=== PATIENT | female | born 1985 | race Caucasian/White ===

== ENCOUNTER 2021-01-14 08:28 | Outpatient (CLI) | payer BC, SELFPAY ==
--- NOTE | 2021-01-14 08:39 | US_ITS ---
WS: [id number] EARLY OBSTETRICAL ULTRASOUND (<14 WEEKS). HISTORY: DATING COMPARISON: None available. Intrauterine fluid collection is probably an early gestational sac. This gestational sac is along the lower end of the endometrium. Mean sac diameter of 1.6 cm corresponds to gestation of 6 weeks and 5 days. There is a yolk sac present and a tiny soft tissue focus which may be early crown-rump length. No cardiac activity is identified. There is a very small adjacent subchorionic hemorrhage measuring 6 x 5 mm. The cervix is closed. No free fluid in the cul-de-sac. Both ovaries are identified with normal vascularity. US/US OB <=14 wk fetus w transvag IMPRESSION: 1. Mean sac diameter corresponds to an age of 6 weeks and 5 days. 2. No cardiac activity identified. Suspect early crown-rump length of 3.9 mm. 3. Small subchorionic hemorrhage. 4. Gestational sac is positioned along the lower endometrial canal. Recommend follow-up ultrasound in one week to confirm viable .
== END 2021-01-14 08:29 | disposition home or self-care (01) ==
LOC: US 08:32
PROVIDERS: PCP Family Medicine; Visit Provider Family Medicine
DX: Z34.80 Encounter for supervision of other normal pregnancy, unspecified trimester (principal)
CPT/HCPCS: 76801; 76817

== ENCOUNTER 2021-01-21 09:01 | Outpatient (CLI) | payer BC, SELFPAY ==
--- NOTE | 2021-01-21 09:12 | US_ITS ---
WS: [id number] ULTRASOUND EARLY TECHNIQUE: Transabdominal sonography of the pelvis was performed. Followed by transvaginal sonography to better evaluate the uterus and ovaries. CLINICAL INFORMATION: ABSENT FHT'S ON US LMP: 11/14/2020 Beta hCG: Unknown. COMPARISON: January 14, 2021 FINDINGS: UTERUS AND GESTATIONAL SAC Intrauterine gestations: Cervix is closed measuring 3.0 cm No visualized pole or cardiac activity. Estimated gestational age: 6w6d Estimated date of delivery September 10, 2021 Yolk sac: 0.3 cm. Subchorionic hemorrhage: No new subchorionic hemorrhage. A small amount of residual subchorionic hemo rrhage described on January 14, 2021 OVARIES Right ovary: Normal. Left ovary: Left ovary not visualized. FREE FLUID Present US[place] [id number] IMPRESSION: 1. No pole or cardiac activity visualized. 2. Gestational sac size compatible with 6 weeks 6 days with a small amount of residual subchorionic hemorrhage. No new subchorionic hemorrhage. 3. Visualized yolk sac with no visualized pole. 4. Recommend additional short interval follow-up to assess viability in this v trever early and correlation with beta-hCG. 5. Small amount of free fluid in the cul-de-sac.
== END 2021-01-21 09:02 | disposition home or self-care (01) ==
LOC: RAD 09:04
PROVIDERS: PCP Family Medicine; Visit Provider Family Medicine
DX: O36.8990 Maternal care for other specified fetal problems, unspecified trimester, not applicable or unspecified (principal)
CPT/HCPCS: 76816

== ENCOUNTER → 2021-10-28 08:52 | Outpatient (BNVA) | payer BC, SELFPAY | PROVIDERS: PCP Family Medicine; Visit Provider Clinical Nurse Specialist Adult Health | DX: N92.0 Excessive and frequent menstruation with regular cycle (principal); R53.83 Other fatigue | CPT/HCPCS: 82306; 84439; 84443; 84481; 85025 ==

== ENCOUNTER → 2022-04-19 13:59 | Outpatient (BNVA) | payer BC, SELFPAY | PROVIDERS: PCP Family Medicine; Visit Provider Podiatrist Foot & Ankle Surgery | DX: M76.61 Achilles tendinitis, right leg (principal); M76.62 Achilles tendinitis, left leg; M20.21 Hallux rigidus, right foot | CPT/HCPCS: 73630 ==

== ENCOUNTER → 2022-12-22 08:07 | Outpatient (BNVA) | payer BC, SELFPAY | PROVIDERS: PCP Family Medicine; Visit Provider Clinical Nurse Specialist Adult Health | DX: Z30.9 Encounter for contraceptive management, unspecified (principal); Z83.49 Family history of other endocrine, nutritional and metabolic diseases | CPT/HCPCS: 80061; 84443 ==

== ENCOUNTER 2023-02-24 15:52 | Emergency (ER) | payer BC, SELFPAY ==
--- NOTE | 2023-02-24 15:53 | XRR_ITS ---
PROCEDURE INFORMATION: Exam: XR Chest Exam date and time: 02/24/2023 3:59 PM Age: 37 years old Clinical indication: Pain; Angina pectoris; Additional info: Cp TECHNIQUE: Imaging protocol: Radiologic exam of the chest. Views: 1 view. COMPARISON: No relevant prior studies available. FINDINGS: Lungs: Unremarkable. No consolidation. Pleural spaces: Unremarkable. No pleural effusion. No pneumothorax. Heart/Mediastinum: Unremarkable. No cardiomegaly. Bones/joints: Unremarkable. XR/XR chest 1V portable [id number] IMPRESSION: No acute findings.
--- NOTE | 2023-02-24 16:04 | ECG_ITS ---
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 Measurements Intervals [place] Rate: 79 P: 51 DC: 154 QRS: 29 QRSD: 97 T: 20 QT: 362 QTc: 415 Interpretive Statements SINUS RHYTHM WITH SINUS ARRHYTHMIA No previous ECG available for comparison Electronically Signed On 02-24-2023 19:26:04 CDT by Leonel Ga M.D. [id number]
[2023-02-24 16:05] VITALS: BP 162/108; PULSE 87; TEMP 36.6; O2SAT 98; BMI 40.0
[2023-02-24 16:55] LABS: Basophils % 0.4 %; Eosinophils # 0.1 10^3/uL (0.0-0.8); Eosinophils % 0.7 %; Hematocrit 43.1 % (36-47); Lymphocytes # 2.3 10^3/uL (0.8-4.8); Mean Corpuscular HGB Conc 33.4 g/dL (30-55); Mean Corpuscular Hemoglobin 29.9 pg (27-33); Mean Corpuscular Volume 89.6 fl (85-98); Mean Platelet Volume 9.5 fL (7.4-10.4); Monocytes # 0.6 10^3/uL (0.2-0.9); Monocytes % 5.4 %; Neutrophils % 73.1 %; Nucleated Red Blood Cells % 0 %; Platelet Count 385 10^3/cmm (157-399); Red Blood Count 4.81 10^6/uL (3.85-5.65); Red Cell Distribution Width 13.3 % (12.1-15.1); White Blood Count 11.35 10^3/uL (3.29-11.43)
[2023-02-24 17:11] LABS: HCG, Serum Qual Negative (Negative)
[2023-02-24 17:12] LABS: INR 0.94 (0.8-1.2)
[2023-02-24 17:18] LABS: Troponin(5th) Baseline 6 ng/L (0-10)
[2023-02-24 17:19] LABS: Alanine Aminotransferase 22 U/L (0-33); Albumin Level 4.4 g/dL (3.5-5.2); Alkaline Phosphatase 83 U/L (35-105); Anion Gap 15.2 (5-19); Aspartate Amino Transferase 18 U/L (0-32); Blood Urea Nitrogen 8 mg/dL (6-20); Calcium 9.3 mg/dL (8.5-10.5); Carbon Dioxide 28 mmol/L (22-29); Chloride 104 mmol/L (98-107); Globulin 2.9 g/dL (1.3-4.6); Glomerular Filtration Rate 112.5 mL/min (90-130); Glucose 93 mg/dL (65-115); Osmolality Calculated 294 mOsm/kg (285-295); Potassium 4.2 mmol/L (3.5-5.1); Sodium 143 mmol/L (136-145); Total Bilirubin 0.2 mg/dL (0.15-1.2); Total Protein 7.3 g/dL (6.6-8.7)
--- NOTE | 2023-02-24 18:05 | ECG_ITS ---
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 Measurements Intervals [place] Rate: 75 P: 21 SD: 160 QRS: 37 QRSD: 90 T: 50 QT: 359 QTc: 402 Interpretive Statements SINUS RHYTHM MINIMAL ST DEPRESSION [0.025+ mV ST DEPRESSION] Compared to ECG 02/24/2023 16:04:48 ST (T wave) deviation now present Sinus arrhythmia no longer present Electronically Signed On 02-24-2023 19:30:56 CDT by Leonel Ga M.D. [id number]
--- NOTE | 2023-02-24 18:38 | CTR_ITS ---
PROCEDURE INFORMATION: Exam: CT Head Without Contrast Exam date and time: 02/24/2023 6:50 PM Age: 37 years old Clinical indication: Pain; Headache TECHNIQUE: Imaging protocol: Computed tomography of the head without contrast. Axial, coronal and sagittal reformatted images were created and reviewed. Radiation optimization: All CT scans at this facility use at least one of these dose optimization techniques: automated exposure control; mA and/or kV adjustment per patient size (includes targeted exams where dose is matched to clinical indication); or iterative reconstruction. REPORTING DATA: Count of CT and Cardiac NM exams in prior 12 months: This patient has received 0 known CTs and 0 known cardiac nuclear medicine studies in the 12 months prior to the current study. COMPARISON: No relevant prior studies available. RADIATION DOSE METRICS: Total DLP (mGy-cm): 1025 FINDINGS: Brain: No CT evidence of acute intracranial hemorrhage or acute territorial infarction. No significant mass effect or midline shift. Basal cisterns patent. Cerebral ventricles: Normal in size and configuration. Paranasal sinuses: Unremarkable. No fluid levels. Mastoid air cells: Grossly unremarkable. Bones/joints: No acute osseous abnormality. Soft tissues: Grossly unremarkable. CT/CT head wo con* [id number] IMPRESSION: No CT evidence of acute intracranial pathology.
[2023-02-24] MEDS: metoclopramide 5 mg/mL SDV 2 mL 10 MG IVP (19:59)
[2023-02-24] MEDS: ketorolac 30 mg/mL INJ IVP (19:59)
[2023-02-24] MEDS: diphenhydrAMINE 50 mg/mL SDV 1mL IVP (19:59)
[2023-02-24] MEDS: sodium chloride 0.9% 1,000 ML 999 ML IV (19:59)
[2023-02-24 20:47] LABS: Troponin 5 2HR Delta 0 ABS# (0-10)
[2023-02-24 20:48] VITALS: BP 163/94; PULSE 68; O2SAT 97
--- NOTE | 2023-02-24 21:46 | ED_ITS ---
Documented by User: KRISTINA Jain 02/24/23 22:39 HPI - Headache General: Chief Complaint: Headache Stated Complaint: Cp, headache Time Seen by Provider: 02/24/23 18:20 History of Present Illness: Patient reports that she has had the worst headache of her life since Tuesday. She reports some nausea with this but she states the headache is intense and her blood pressure has been elevated. She denies any visual disturbance. She reports having a history of migraines in which she always has visual disturbance. She states that this headache is very different from her migraine headaches. She rates it an 8 out of 10 on a 0-to-10 scale. She reports that she is recovering from COVID. She did take Paxil bed she has been off of that medication since 18 February. She reports that she has been feeling generally well except for continued fatigue. She states that the headache did not start until Tuesday. She offers that she is very hydrated. She denies possibility of . She does report that she has had intermittent chest pain/ tightness but does not currently have this. She denies any associated shortness of breath. Associated symptoms: Reports chest pain (Intermittent not having pain at present); Deny confusion, fever(s), lightheadedness, nausea, syncope or vomiting Review of Systems Const: Denies: fever(s), chills or body aches Eyes: Denies: change in vision or blurry vision ENMT: Denies: throat pain Card: Reports: chest pain (Intermittent not having pain at present); Denies: palpitations, irregular heart rhythm, lightheadedness or syncope Resp: Denies: dyspnea, productive cough or non-productive cough GI: Denies: abdominal pain, nausea or vomiting : Denies: flank pain, difficulty voiding, dysuria, urinary frequency, urinary urgency or urinary hesitancy Musc: Denies: neck pain or back pain Neuro: Reports: headache(s); Denies: numbness in extremities, weakness in extremities, sensory changes, lack of coordination, difficulty walking, confusion or behavioral changes PFSH ED PFSH: Medical History Butterfly rash EVE negative Esophageal spasm Hyperlipidemia Myopia Surgical History Retinal detachment surgery for this Family History Sister Lili's thyroiditis ADHD Other CAD (coronary artery disease) Hyperlipidemia Hypertension ALONDRA (obstructive sleep apnea) Social History Smoking and tobacco status: never smoked Alcohol intake: current Alcohol intake frequency: holidays/special occasions only Substance/Drug Use: never Physical Exam Const: COMMON NORMALS: no acute distress, patient oriented x3 and alert GENERAL APPEARANCE: cooperative ORIENTATION/CONSCIOUSNESS: Yes awake, Yes oriented to person, Yes oriented to place and Yes oriented to time Eye: COMMON NORMALS: Equal, round and reactive pupils present, EOMs intact bilaterally and conjunctivae normal GENERAL EYE: appearance normal, both eyes and all related structures ALIGNMENT: Yes alignment normal CONJUNCTIVA: Yes conjunctivae normal SCLERA: sclerae normal PUPIL: Yes Equal, round and reactive pupils present Neck/C-Spine: COMMON NORMALS: full ROM Resp: COMMON NORMALS: normal respiratory effort, No retractions, No use of accessory muscles and clear to auscultation bilaterally EFFORT & INSPECTION: Yes symmetric chest movement AUSCULTATION: clear to auscultation bilaterally Cardio: COMMON NORMALS: regular rate, regular rhythm, S1 normal heart sound present and S2 normal heart sound present RATE: regular rate RHYTHM: regular rhythm HEART SOUNDS: S1 normal heart sound present and S2 normal heart sound present GI: COMMON NORMALS: Normal to inspection, nondistended, normoactive bowel sounds present, Soft to palpation, non-tender, No hepatosplenomegaly present, no masses and no bruits INSPECTION: Yes normal to inspection PALPATION: Yes Soft to palpation and Yes No hepatosplenomegaly present : COMMON NORMALS: Yes no CVA tenderness BLADDER/KIDNEY EXAM: Yes no CVA tenderness Back/Pelvis: COMMON NORMALS: no CVA tenderness Neuro: COMMON NORMALS: patient oriented x3 SENSORIUM/ORIENTATION: Yes alert, Yes oriented to person, Yes oriented to place and Yes oriented to time Psych: COMMON NORMALS: cooperative Course Vital Signs: Vital signs: Vital Signs Temperature 97.9 F 02/24/23 16:05 Pulse Rate 78 02/24/23 22:26 Respiratory Rate 18 02/24/23 22:26 Blood Pressure 154/87 02/24/23 22:26 Pulse Oximetry 97 09/14/23 22:26 Oxygen Delivery Me thod Room Air 02/24/23 16:05 MDM - Headache Medical Decision Making Consider chest pain, ACS, intracranial hemorrhage, headache, migraine, dehydration, elevated blood pressure, anxiety Labs do not indicate any major infection. They are essentially unremarkable. Troponins baseline and 2-hour repeat are negative. Patient has not had any instance of chest pain while in the ER. CT head negative for any acute intracranial pathology Patient is given IV fluids with migraine cocktail Benadryl, Reglan, Toradol. She reports resolution of headache and feeling much better. Will discharge patient to home to follow-up with primary care provider next week. Advised her of red flags for worsening or new headache symptoms. Return to the ER as needed for any new or worsening symptoms. Patient and spouse are both agreeable with plan of care and wished to be discharged home at this time. Patient is discharged home in stable condition. Lab Data 02/24/23 16:39 02/24/23 16:39 Radiology Impressions Chest X-Ray 02/24/23 15:53 IMPRESSION: No acute findings. Head CT 02/24/23 18:38 IMPRESSION: No CT evidence of acute intracranial pathology. Laboratory Results WBC 11.35 10^3/uL (3.29-11.43) 02/24/23 16:39 RBC 4.81 10^6/uL (3.85-5.65) 02/24/23 16:39 Hgb 14.40 g/dL (11.27-16.99) 02/24/23 16:39 Hct 43.1 % (36-47) 02/24/23 16:39 MCV 89.6 fl (85-98) 02/24/23 16:39 MCH 29.9 pg (27-33) 02/24/23 16:39 MCHC 33.4 g/dL (30-55) 02/24/23 16:39 RDW 13.3 % (12.1-15.1) 02/24/23 16:39 Plt Count 385 10^3/cmm (157-399) 02/24/23 16:39 MPV 9.5 fL (7.4-10.4) 02/24/23 16:39 Neut % (Auto) 73.1 % 02/24/23 16:39 Lymph % (Auto) 20.0 % 02/24/23 16:39 [place] % (Auto) 5.4 % 02/24/23 16:39 Eos % (Auto) 0.7 % 02/24/23 16:39 Baso % (Auto) 0.4 % 02/24/23 16:39 Neut # (Auto) 8.30 10^3/uL (1.8-7.7) H 02/24/23 16:39 Lymph # (Auto) 2.3 10^3/uL (0.8-4.8) 02/24/23 16:39 [place] # (Auto) 0.6 10^3/uL (0.2-0.9) 02/24/23 16:39 Eos # (Auto) 0.1 10^3/uL (0.0-0.8) 02/24/23 16:39 Baso # (Auto) 0.0 10^3/uL (0.0-0.1) 02/24/23 16:39 Nucleated RBC % (auto) 0 % 02/24/23 16:39 Nucleated RBCs # 0.0 /100WBC 02/24/23 16:39 PT 12.90 SECONDS (12.1-14.9) 02/24/23 16:39 INR 0.94 (0.8-1.2) 02/24/23 16:39 Sodium 143 mmol/L (136-145) 02/24/23 16:39 Potassium 4.2 mmol/L (3.5-5.1) 02/24/23 16:39 Chloride 104 mmol/L (98-107) 02/24/23 16:39 Carbon Dioxide 28 mmol/L (22-29) 02/24/23 16:39 Anion Gap 15.2 (5-19) 02/24/23 16:39 BUN 8 mg/dL (6-20) 02/24/23 16:39 Creatinine 0.6 mg/dL (0.5-0.9) 02/24/23 16:39 GFR Calculation 112.5 mL/min (90-130) 02/24/23 16:39 Glucose 93 mg/dL (65-115) 02/24/23 16:39 Calculated Osmolality 294 mOsm/kg (285-295) 02/24/23 16:39 Calcium 9.3 mg/dL (8.5-10.5) 02/24/23 16:39 Total Bilirubin 0.2 mg/dL (0.15-1.2) 02/24/23 16:39 AST 18 U/L (0-32) 02/24/23 16:39 ALT 22 U/L (0-33) 02/24/23 16:39 Alkaline Phosphatase 83 U/L (35-105) 02/24/23 16:39 Troponin T Baseline 6 ng/L (0-10) 02/24/23 16:39 Troponin T 120 Minute 6.0 ng/L (0-10) 02/24/23 19:52 Delta Troponin T 0 ABS# (0-10) 02/24/23 19:52 Total Protein 7.3 g/dL (6.6-8.7) 02/24/23 16:39 Albumin 4.4 g/dL (3.5-5.2) 02/24/23 16:39 Globulin 2.9 g/dL (1.3-4.6) 02/24/23 16:39 HCG, Qual Negative (Negative) 02/24/23 16:39 All radiology interpretation(s) finalized by discharge Discharge Plan Discharge Patient Disposition: Home Clinical Impression: Headache, Chest pain, Elevated blood pressure reading Condition: Stable Prescriptions: No Action cetirizine [Zyrtec] 10 mg tablet 10 mg PO DAILY PRN Women's Multivitamin 18 mg-400 mcg- 500 mg-50 mcg tablet PO fluticasone propionate 50 mcg/actuation spray,suspension 2 spray intranasal DAILY Rx Instructions: administer into each nostril cholecalciferol (vitamin D3) 25 mcg (1,000 unit) capsule 25 mcg PO DAILY cyanocobalamin (vitamin B-12) [Vitamin B-12] 500 mcg tablet 500 mcg PO DAILY losartan 25 mg tablet 25 mg PO DAILY Qty: 30 3RF valacyclovir 1 gram tablet See Rx Instructions .ROUTE .COMPLEX Qty: 30 6RF Dose Instruction: TAKE 2 TABLETS BY MOUTH TWICE DAILY FOR 1 DAY WITH OUTBREAKS AND 1 TABLET FOR SUPPRESSION Rx Instructions: TAKE 2 TABLETS BY MOUTH TWICE DAILY FOR 1 DAY WITH OUTBREAKS AND 1 TABLET daily FOR SUPPRESSION sumatriptan succinate 50 mg tablet 50 mg PO Q2H PRN (Reason: migraine headache) Qty: 14 3RF Rx Instructions: Do not exceed two tabs in 24 hrs. norethindrone ac-eth estradiol 1-20 mg-mcg tablet 1 tab PO DAILY Qty: 63 4RF Discharge Orders: Discharge ED (Routine); Ordered 02/24/23 Ordered By: Radha Chavez Referrals: Zaire Gallagher MD [Primary Care Provider] - Discharge Diet: Usual diet Discharge Activity: Resume usual activity Patient Instructions: Acute Headache (ED) Activity Restrictions/Additional Instructions: Your labs and your CT scan today did not indicate any acute infection/abnormality. Your headache resolved with the administration of the IV fluids and medications. You did not have any incidence of chest pain while in the ER and your troponin levels did not indicate any abnormalities. Follow-up with your primary care provider next week. Return to the ER for any new, worsening symptoms. Coding Level of Care Code ED Cleaner Furniture for Chg Fwd Documented by User: Jonathan Collier DO 03/04/23 05:54 HPI - Headache General: Chief Complaint: Headache Stated Complaint: Cp, headache Time Seen by Provider: [facility]24[facility]23 18:[facility]: Medical History Butterfly rash EVE negative Esophageal spasm Hyperlipidemia Myopia Surgical History Retinal detachment surgery for this Family History Sister Lili's thyroiditis ADHD Other CAD (coronary artery disease) Hyperlipidemia Hypertension ALONDRA (obstructive sleep apnea) Social History Smoking and tobacco status: never smoked Alcohol intake: current Alcohol intake frequency: holidays/special occasions only Substance/Drug Use: never Course Vital Signs: Vital signs: Vital Signs Temperature 97.9 F 02/24/23 16:05 Pulse Rate 78 02/24/23 22:26 Respiratory Rate 18 02/24/23 22:26 Blood Pressure 154/87 02/24/23 22:26 Pulse Oximetry 97 02/24/23 22:26 Oxygen Delivery Me thod Room Air 02/24/23 16:05 MDM - Headache Medical Decision Making Consider chest pain, ACS, intracranial hemorrhage, headache, migraine, dehydration, elevated blood pressure, anxiety Labs do not indicate any major infection. They are essentially unremarkable. Troponins baseline and 2-hour repeat are negative. Patient has not had any instance of chest pain while in the ER. CT head negative for any acute intracranial pathology Patient is given IV fluids with migraine cocktail Benadryl, Reglan, Toradol. She reports resolution of headache and feeling much better. Will discharge patient to home to follow-up with primary care provider next week. Advised her of red flags for worsening or new headache symptoms. Return to the ER as needed for any new or worsening symptoms. Patient and spouse are both agreeable with plan of care and wished to be discharged home at this time. Patient is discharged home in stable condition. Chart reviewed and patient discussed with midlevel. Agree with assessment and plan. Medical Records I reviewed the patient's medical records. Lab Data I reviewed the patient's lab results. 02/24/23 16:39 02/24/23 16:39 Radiology Impressions Chest X-Ray 02/24/23 15:53 IMPRESSION: No acute findings. Head CT 02/24/23 18:38 IMPRESSION: No CT evidence of acute intracranial pathology. Laboratory Results WBC 11.35 10^3/uL (3.29-11.43) 02/24/23 16:39 RBC 4.81 10^6/uL (3.85-5.65) 02/24/23 16:39 Hgb 14.40 g/dL (11.27-16.99) 02/24/23 16:39 Hct 43.1 % (36-47) 02/24/23 16:39 MCV 89.6 fl (85-98) 02/24/23 16:39 MCH 29.9 pg (27-33) 02/24/23 16:39 MCHC 33.4 g/dL (30-55) 02/24/23 16:39 RDW 13.3 % (12.1-15.1) 02/24/23 16:39 Plt Count 385 10^3/cmm (157-399) 02/24/23 16:39 MPV 9.5 fL (7.4-10.4) 02/24/23 16:39 Neut % (Auto) 73.1 % 02/24/23 16:39 Lymph % (Auto) 20.0 % 02/24/23 16:39 [place] % (Auto) 5.4 % 02/24/23 16:39 Eos % (Auto) 0.7 % 02/24/23 16:39 Baso % (Auto) 0.4 % 02/24/23 16:39 Neut # (Auto) 8.30 10^3/uL (1.8-7.7) H 02/24/23 16:39 Lymph # (Auto) 2.3 10^3/uL (0.8-4.8) 02/24/23 16:39 [place] # (Auto) 0.6 10^3/uL (0.2-0.9) 02/24/23 16:39 Eos # (Auto) 0.1 10^3/uL (0.0-0.8) 02/24/23 16:39 Baso # (Auto) 0.0 10^3/uL (0.0-0.1) 02/24/23 16:39 Nucleated RBC % (auto) 0 % 02/24/23 16:39 Nucleated RBCs # 0.0 /100WBC 02/24/23 16:39 PT 12.90 SECONDS (12.1-14.9) 02/24/23 16:39 INR 0.94 (0.8-1.2) 02/24/23 16:39 Sodium 143 mmol/L (136-145) 02/24/23 16:39 Potassium 4.2 mmol/L (3.5-5.1) 02/24/23 16:39 Chloride 104 mmol/L (98-107) 02/24/23 16:39 Carbon Dioxide 28 mmol/L (22-29) 02/24/23 16:39 Anion Gap 15.2 (5-19) 02/24/23 16:39 BUN 8 mg/dL (6-20) 02/24/23 16:39 Creatinine 0.6 mg/dL (0.5-0.9) 02/24/23 16:39 GFR Calculation 112.5 mL/min (90-130) 02/24/23 16:39 Glucose 93 mg/dL (65-115) 02/24/23 16:39 Calculated Osmolality 294 mOsm/kg (285-295) 02/24/23 16:39 Calcium 9.3 mg/dL (8.5-10.5) 02/24/23 16:39 Total Bilirubin 0.2 mg/dL (0.15-1.2) 02/24/23 16:39 AST 18 U/L (0-32) 02/24/23 16:39 ALT 22 U/L (0-33) 02/24/23 16:39 Alkaline Phosphatase 83 U/L (35-105) 02/24/23 16:39 Troponin T Baseline 6 ng/L (0-10) 02/24/23 16:39 Troponin T 120 Minute 6.0 ng/L (0-10) 02/24/23 19:52 Delta Troponin T 0 ABS# (0-10) 02/24/23 19:52 Total Protein 7.3 g/dL (6.6-8.7) 02/24/23 16:39 Albumin 4.4 g/dL (3.5-5.2) 02/24/23 16:39 Globulin 2.9 g/dL (1.3-4.6) 02/24/23 16:39 HCG, Qual Negative (Negative) 02/24/23 16:39 Discharge Plan Discharge Patient Disposition: Home Clinical Impression: Headache, Chest pain, Elevated blood pressure reading Condition: Stable Prescriptions: No Action cetirizine [Zyrtec] 10 mg tablet 10 mg PO DAILY PRN Women's Multivitamin 18 mg-400 mcg- 500 mg-50 mcg tablet PO fluticasone propionate 50 mcg/actuation spray,suspension 2 spray intranasal DAILY Rx Instructions: administer into each nostril cholecalciferol (vitamin D3) 25 mcg (1,000 unit) capsule 25 mcg PO DAILY cyanocobalamin (vitamin B-12) [Vitamin B-12] 500 mcg tablet 500 mcg PO DAILY losartan 25 mg tablet 25 mg PO DAILY Qty: 30 3RF valacyclovir 1 gram tablet See Rx Instructions .ROUTE .COMPLEX Qty: 30 6RF Dose Instruction: TAKE 2 TABLETS BY MOUTH TWICE DAILY FOR 1 DAY WITH OUTBREAKS AND 1 TABLET FOR SUPPRESSION Rx Instructions: TAKE 2 TABLETS BY MOUTH TWICE DAILY FOR 1 DAY WITH OUTBREAKS AND 1 TABLET daily FOR SUPPRESSION sumatriptan succinate 50 mg tablet 50 mg PO Q2H PRN (Reason: migraine headache) Qty: 14 3RF Rx Instructions: Do not exceed two tabs in 24 hrs. norethindrone ac-eth estradiol 1-20 mg-mcg tablet 1 tab PO DAILY Qty: 63 4RF Discharge Orders: Discharge ED (Routine); Ordered 02/24/23 Ordered By: Radha Chavez Referrals: Zaire Gallagher MD [Primary Care Provider] - Discharge Diet: Usual diet Discharge Activity: Resume usual activity Patient Instructions: Acute Headache (ED) Activity Restrictions/Additional Instructions: Your labs and your CT scan today did not indicate any acute infectio n/abnormality. Your headache resolved with the administration of the IV fluids and medications. You did not have any incidence of chest pain while in the ER and your troponin levels did not indicate any abnormalities. Follow-up with your primary care provider next week. Return to the ER for any new, worsening symptoms. Coding Level of Care Code ED Cleaner Furniture for Caesar Obrien
[2023-02-24 22:26] VITALS: BP 154/87; PULSE 78; RESP 18; O2SAT 97
== END 2023-02-24 22:24 | disposition home or self-care (01) ==
PROVIDERS: Emergency Medicine; Emergency Provider Nurse Practitioner Family; PCP Family Medicine
DX: R51.9 Headache, unspecified (principal); R07.9 Chest pain, unspecified; R03.0 Elevated blood-pressure reading, without diagnosis of hypertension; E78.5 Hyperlipidemia, unspecified
CPT/HCPCS: 36415; 70450; 71045; 80053; 84484; 84703; 85025; 85610; 93005; 96361; 96374; 96375; 99285; J1200; J1885; J2765; J7030

== ENCOUNTER → 2023-03-22 11:15 | Outpatient (BNVA) | payer BC, SELFPAY | PROVIDERS: PCP Family Medicine; Visit Provider Family Medicine | DX: Z51.81 Encounter for therapeutic drug level monitoring (principal); I10 Essential (primary) hypertension | CPT/HCPCS: 80048 ==

== ENCOUNTER 2023-08-05 11:59 | Observation (INO) | payer BC, SELFPAY ==
[2023-08-05] VITALS (16 sets, daily range): BP systolic 118–166; BP diastolic 77–99; PULSE 70–154; RESP 12–21; TEMP 36.6–36.8; O2SAT 93–98; BMI 42.4
--- NOTE | 2023-08-05 12:03 | ECG_ITS ---
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 Measurements Intervals [place] Rate: 123 P: 0 [place]: 0 QRS: 41 QRSD: 97 T: 43 QT: 289 QTc: 415 Interpretive Statements ATRIAL FIBRILLATION WITH RAPID VENTRICULAR RESPONSE MINIMAL ST DEPRESSION [0.025+ mV ST DEPRESSION] Compared to ECG 02/24/2023 18:05:18 Sinus rhythm no longer present ST (T wave) deviation still present Electronically Signed On 08-05-2023 12:34:56 [employer] by Aaron Barillas M.D. [id number] f
--- NOTE | 2023-08-05 12:09 | XR_ITS ---
WS: [id number] Examination: XR chest 1V portable [id number] Reason for Exam: chest pain Date: 08/05/2023 Comparison: 02/24/2023 Findings: The cardiomediastinal silhouette is within normal limits. There is no pulmonary edema or large pleural effusion. There is no dense consolidation Impression: No acute lung process is seen.
--- NOTE | 2023-08-05 12:22 | ED_ITS ---
HPI - Arrhythmia/Palpitations 2 General: Chief Complaint: Arrhythmia/Palpitations Stated Complaint: Chest Pains Time Seen by Provider: 08/05/23 12:01 Source: patient Mode of arrival: ambulatory Limitations: no limitations History of Present Illness: Patient is a 37-year-old female with a history of hypertension, migraines, and seasonal allergies here for concerns of new onset atrial fibrillation. Patient states she woke up feeling normal but states while she was doing dishes she began feeling like her heart was racing and skipping beats. She states she began developing some chest pressure and some lightheadedness. Patient states she sat down and checked her blood pressure and reports it was low with systolics in the 90s. She states her Apple Watch alerted her that she was in atrial fibrillation. She has no history of this. She has not started any new medications. She does tell me she has began taking some type of turmeric/milka tea drink. No recent illness. MD complaint: rapid heart beat, heart racing , palpitations, irregular heart beat and atrial fibrillation Onset (ago): hour(s) Severity: moderate Context: occurred during rest Associated symptoms: Reports no associated symptoms; Deny nausea, pre-syncope, syncope or vomiting Review of Systems 2 Const: Denies: fever(s), chills, body aches, fatigue or malaise Card: Reports: chest pain, palpitations, irregular heart rhythm, lightheadedness and dyspnea on exertion; Denies: edema, swelling of feet/ankles, syncope, pre-syncope, orthopnea, leg pain with exertion or acrocyanosis Resp: Denies: wheezing, pain on inspiration, change in phlegm color, hemoptysis or chest congestion GI: Denies: abdominal pain, nausea or vomiting Musc: Denies: neck pain, back pain, extremity pain or joint pain Skin/Breast: Denies: rash Neuro: Denies: headache(s), numbness in extremities, weakness in extremities or sensory changes PFSH ED 2 PFSH: Medical History Butterfly rash EVE negative Myopia Esophageal spasm Hyperlipidemia Surgical History Retinal detachment surgery for this Family History Sister Lili's thyroiditis ADHD Other CAD (coronary artery disease) Hyperlipidemia Hypertension ALONDRA (obstructive sleep apnea) Social History Smoking and tobacco/nicotine status: never used tobacco/nicotine Alcohol intake: current Alcohol intake frequency: holidays/special occasions only Substance/Drug Use: never Physical Exam 2 Const: COMMON NORMALS: patient oriented x3, no limitations, alert and well nourished GENERAL APPEARANCE: cooperative and anxious NUTRITIONAL APPEARANCE: obese morbidly obese (BMI is 41.3) ORIENTATION/CONSCIOUSNESS: Yes awake, Yes oriented to person, Yes oriented to place and Yes oriented to time Resp: COMMON NORMALS: normal respiratory effort and clear to auscultation bilaterally AUSCULTATION: clear to auscultation bilaterally Cardio: RATE: tachycardic RHYTHM: abnormal rhythm irregularly irregular Extremity: COMMON NORMALS: capillary refill normal, no joint enlargement, no clubbing, cyanosis or edema, no calf tenderness and no pedal edema GENERAL: Y es normal exam except as noted Neuro: [place] SCALE: document GCS findings Good coma scale eye opening: Spontaneous [place] coma scale verbal response: Orientated [place] coma scale motor response: Obey commands Good coma scale total score: 15 COMMON NORMALS: patient oriented x3 SENSORIUM/ORIENTATION: Yes alert, Yes oriented to person, Yes oriented to place and Yes oriented to time Skin: COMMON NORMALS: no rashes or lesions noted GENERAL SKIN EXAM: no rashes or lesions noted Course 2 Consultations: Consultation #1: Dr. Cedillo-accepts hospitalization; requests ddimer and mag Vital Signs: Vital signs: Vital Signs Temperature 97.8 F 08/05/23 12:04 Pulse Rate 107 H 08/05/23 13:45 Respiratory Rate 18 08/05/23 13:45 Blood Pressure 123/88 08/05/23 13:45 Pulse Oximetry 93 08/05/23 13:45 Oxygen Delivery Me thod Room Air 08/05/23 13:45 MDM - Arrhythmia/Palpitations Medical Decision Making Patient is a nice 37-year-old female here for new onset A-fib with RVR starting this morning. She arrived with heart rates anywhere from 115-160s. She was given an initial IV dose of 20mg of Cardizem which helped temporarily but heart rates went back into the 110s-120s. Will start on a drip. Spoke to Dr. Dennis who agrees with plan for admission for new onset atrial fibrillation with RVR. Spoke to hospitalist Dr. Cedillo who will admit. He is requesting d-dimer and magnesium. These will be ordered. Medical Records I reviewed the patient's medical records. Lab Data I reviewed the patient's lab results. 08/05/23 12:31 08/05/23 12:31 Laboratory Results WBC 10.56 10^3/uL (3.29-11.43) 08/05/23 12:31 RBC 4.84 10^6/uL (3.85-5.65) 08/05/23 12:31 Hgb 14.60 g/dL (11.27-16.99) 08/05/23 12:31 Hct 42.0 % (36-47) 08/05/23 12:31 MCV 86.8 fl (85-98) 08/05/23 12:31 MCH 30.2 pg (27-33) 08/05/23 12:31 MCHC 34.8 g/dL (30-55) 08/05/23 12:31 RDW 13.3 % (12.1-15.1) 08/05/23 12:31 Plt Count 390 10^3/cmm (157-399) 08/05/23 12:31 MPV 9.9 fL (7.4-10.4) 08/05/23 12:31 Neut % (Auto) 61.9 % 08/05/23 12:31 Lymph % (Auto) 29.6 % 08/05/23 12:31 [place] % (Auto) 6.2 % 08/05/23 12:31 Eos % (Auto) 1.3 % 08/05/23 12:31 Baso % (Auto) 0.6 % 08/05/23 12:31 Neut # (Auto) 6.54 10^3/uL (1.8-7.7) 08/05/23 12:31 Lymph # (Auto) 3.1 10^3/uL (0.8-4.8) 08/05/23 12:31 [place] # (Auto) 0.7 10^3/uL (0.2-0.9) 08/05/23 12:31 Eos # (Auto) 0.1 10^3/uL (0.0-0.8) 08/05/23 12:31 Baso # (Auto) 0.1 10^3/uL (0.0-0.1) 08/05/23 12:31 Nucleated RBC % (auto) 0 % 08/05/23 12:31 Nucleated RBCs # 0.0 /100WBC 08/05/23 12:31 Sodium 135 mmol/L (136-145) L 08/05/23 12:31 Potassium 4.0 mmol/L (3.5-5.1) 08/05/23 12:31 Chloride 103 mmol/L (98-107) 08/05/23 12:31 Carbon Dioxide 23 mmol/L (22-29) 08/05/23 12:31 Anion Gap 13.0 (5-19) 08/05/23 12:31 BUN 8 mg/dL (6-20) 08/05/23 12:31 Creatinine 0.6 mg/dL (0.5-0.9) 08/05/23 12:31 GFR Calculation 112.5 mL/min (90-130) 08/05/23 12:31 Glucose 104 mg/dL (65-115) 08/05/23 12:31 Calculated Osmolality 279 mOsm/kg (285-295) L 08/05/23 12:31 Calcium 8.5 mg/dL (8.5-10.5) 08/05/23 12:31 Total Bilirubin 0.2 mg/dL (0.15-1.2) 08/05/23 12:31 AST 13 U/L (0-32) 08/05/23 12:31 ALT 13 U/L (0-33) 08/05/23 12:31 Alkaline Phosphatase 76 U/L (35-105) 08/05/23 12:31 Troponin T Baseline < 6 ng/L (0-10) 08/05/23 12:31 NT-Pro-B Natriuret Pep 599 pg/mL (0-125) H 08/05/23 12:31 Total Protein 7.1 g/dL (6.6-8.7) 08/05/23 12:31 Albumin 3.8 g/dL (3.5-5.2) 08/05/23 12:31 Globulin 3.3 g/dL (1.3-4.6) 08/05/23 12:31 TSH 2.90 uIU/mL (0.27-4.20) 08/05/23 12:31 HCG, Qual Negative (Negative) 08/05/23 12:31 All radiology interpretation(s) finalized by discharge Discharge Plan Discharge Patient Disposition: Admitted As Inpatient Clinical Impression: Atrial fibrillation, new onset, Atrial fibrillation with rapid ventricular response Condition: Stable Coding Level of Care Code ED Double Surface Operator for Caesar Obrien
[2023-08-05] MEDS: dilTIAZem 5 mg/mL SDV 5 mL 20 MG IVP (12:33)
--- NOTE | 2023-08-05 13:05 | PC.NURSE ---
PATIENT HR DROPPED TO 85-88. EKG PERFORMED GIVEN TO PROVIDER. UPON MOVEMENT TO SIT UP FOR XR PATIENT HR INCREASED TO 140S. PROVIDER NOTIFIED.
[2023-08-05 13:06] LABS: Basophils # 0.1 10^3/uL (0.0-0.1); Basophils % 0.6 %; Eosinophils # 0.1 10^3/uL (0.0-0.8); Eosinophils % 1.3 %; Lymphocytes # 3.1 10^3/uL (0.8-4.8); Lymphocytes % 29.6 %; Mean Corpuscular HGB Conc 34.8 g/dL (30-55); Mean Corpuscular Hemoglobin 30.2 pg (27-33); Mean Corpuscular Volume 86.8 fl (85-98); Mean Platelet Volume 9.9 fL (7.4-10.4); Monocytes # 0.7 10^3/uL (0.2-0.9); Monocytes % 6.2 %; Neutrophils # 6.54 10^3/uL (1.8-7.7); Neutrophils % 61.9 %; Nucleated Red Blood Cells % 0 %; Platelet Count 390 10^3/cmm (157-399); Red Blood Count 4.84 10^6/uL (3.85-5.65); Red Cell Distribution Width 13.3 % (12.1-15.1); White Blood Count 10.56 10^3/uL (3.29-11.43)
[2023-08-05] MEDS: dilTIAZem 100 MG in sodium chloride 0.9% (add-van) 100 ML IV (13:27)
[2023-08-05 13:28] LABS: Troponin(5th) Baseline < 6 ng/L (0-10)
[2023-08-05 13:33] LABS: HCG, Serum Qual Negative (Negative)
[2023-08-05 13:36] LABS: Alanine Aminotransferase 13 U/L (0-33); Albumin Level 3.8 g/dL (3.5-5.2); Alkaline Phosphatase 76 U/L (35-105); Aspartate Amino Transferase 13 U/L (0-32); Blood Urea Nitrogen 8 mg/dL (6-20); Calcium 8.5 mg/dL (8.5-10.5); Carbon Dioxide 23 mmol/L (22-29); Chloride 103 mmol/L (98-107); Creatinine Clr Calc Pharmacy 183.4545; Globulin 3.3 g/dL (1.3-4.6); Glomerular Filtration Rate 112.5 mL/min (90-130); Glucose 104 mg/dL (65-115); NT Pro B Type Natriuretic Pept 599 pg/mL (0-125); Osmolality Calculated 279 mOsm/kg (285-295); Sodium 135 mmol/L (136-145); Total Bilirubin 0.2 mg/dL (0.15-1.2); Total Protein 7.1 g/dL (6.6-8.7)
--- NOTE | 2023-08-05 14:09 | ECG_ITS ---
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 Measurements Intervals [place] Rate: 80 P: 0 AL: 0 QRS: 73 QRSD: 89 T: 44 QT: 360 QTc: 417 Interpretive Statements ATRIAL FIBRILLATION Compared to ECG 08/05/2023 12:03:48 ST (T wave) deviation no longer present Electronically Signed On 08-05-2023 13:06:05 RUSH SEATER by Aaron Barillas M.D. [email or web address] Good Technologiesadams county [email or web address] Interactive/[id number]
--- NOTE | 2023-08-05 14:14 | P.HP_ITS ---
Providers/Chief Complaint 2 Admitting Physician: Ricci Cedillo MD Primary Care Provider: Zaire Gallagher MD Chief Complaint: Chest Pains History of Present Illness Ness Hernández is a 37 year old female with no known previous history of coronary disease or CHF or A-fib presented today with chief complaint of palpitations while she was doing dishes in the morning, all of a sudden she started experiencing weak along palpitation she describes her palpitations as feeling shaky inside, she checked her blood pressure it was low and then her who is a PCP recommended to monitor her pulse with Apple Watch, Apple Watch detected heart rate 150 highest below was around 80s and detected A-fib at that point she was brought to the ER for further evaluation, in the ER she was diagnosed with new onset A-fib RVR she was put on Cardizem drip after failing 20 mg of Cardizem at the time of my evaluation she is on Cardizem drip at 7.5 mg heart rate fluctuating between 95 to 110 mmHg, blood pressure stable 123/88 mmHg, she is afebrile, TSH unremarkable beta-hCG negative, I requested D-dimer and mag level. Mrs. Main is stating that she only has history of hypertension which is well- controlled on losartan 50 mg, she is trying to cut back on her alcohol consumption she normally uses wine her last drink was on Tuesday, she does not smoke her potassium is 4.0, magnesium is pending BNP 599. . She is denying fever, shortness of breath, chest pain, recent diarrhea. She has been using some flavored electrolyte enriched teas recently added turmeric tea to her regimen. Review of Systems 2 Const: Reports: chills; Denies: fever(s) Eyes: Denies: change in vision ENMT: Denies: throat pain Card: Reports: palpitations; Denies: chest pain Resp: Reports: dyspnea GI: Denies: abdominal pain : Denies: flank pain Musc: Denies: neck pain Skin/Breast: Denies: rash Neuro: Denies: headache(s) Psych: Reports: anxiety Endo: Denies: polyuria Medications/Allergies Home Medications Medication Instructions Recorded Confirmed Last Taken Type cholecalciferol (vitamin D3) 25 25 mcg PO QAM 03/24/22 08/05/23 08/05/23 History mcg (1,000 unit) capsule cyanocobalamin (vitamin B-12) 500 500 mcg PO QAM 03/24/22 08/05/23 08/05/23 History mcg tablet (Vitamin B-12) fluticasone propionate 50 2 spray intranasal QAM 03/24/22 08/05/23 08/05/23 History mcg/actuation nasal spray,suspension cetirizine 10 mg tablet (Zyrtec) 10 mg PO QAM 12/22/22 08/05/23 08/05/23 History tzqufujo-vug-ssak 18 mg-FA 400 tab PO 12/22/22 06/15/23 Unknown History mcg-calcium 500 mg-vit K 50 mcg tablet (Women's Multivitamin) valacyclovir 1 gram tablet See Rx Instructions .Route 12/28/22 06/15/23 Unknown Rx .COMPLEX #30 tabs sumatriptan succinate 50 mg tablet 50 mg PO Q2H PRN migraine headache 01/28/23 06/15/23 Unknown Rx #14 tabs norethindrone acetate 1 mg-ethinyl 1 tab PO DAILY #63 tabs 02/10/23 06/15/23 Unknown Rx estradiol 20 mcg tablet ascorbic acid (vitamin C) 500 mg 500 mg PO QAM 08/05/23 08/05/23 08/05/23 History tablet (Vitamin C) inulin 2 gram chewable tablet 2 g PO QAM 08/05/23 08/05/23 08/05/23 History (Fiber Gummies) losartan 50 mg tablet 50 mg PO QAM 08/05/23 08/05/23 08/05/23 History norethindrone acetate 1 mg-ethinyl 1 tab PO QAM 08/05/23 08/05/23 08/05/23 History estradiol 20 mcg tablet Allergies Allergy/AdvReac Type Severity Reaction Status Date / Time cefaclor Allergy ALGY-Hives Verified 08/05/23 14:19 Penicillins Allergy ALGY-Hives Verified 08/05/23 14:19 PFSH Acute 2 PFSH: Medical History (Updated 08/05/23 @ 14:24 by Ricci Cedillo MD) Flu vaccine need Medication monitoring encounter Contraception management Family history of thyroid disease Toe pain, right Achilles tendinitis of both lower extremities Butterfly rash EVE negative Myopia Esophageal spasm Hyperlipidemia Surgical History Retinal detachment surgery for this Family History Sister Lili's thyroiditis ADHD Other CAD (coronary artery disease) Hyperlipidemia Hypertension ALONDRA (obstructive sleep apnea) Social History Smoking and tobacco/nicotine status: never used tobacco/nicotine Alcohol intake: current Alcohol intake frequency: holidays/special occasions only Substance/Drug Use: never Vitals/I&O/Wt Last Vital Signs Temp 97.8 F 08/05/23 12:04 Pulse 107 H 08/05/23 13:45 Resp 18 08/05/23 13:45 BP 123/88 08/05/23 13:45 Pulse Ox 93 08/05/23 13:45 O2 Del Method Room Air 08/05/23 13:45 08/04/23 08/05/23 08/05/23 22:59 06:59 14:59 Intake Total 1.5 / 1.5 Balance 1.5 / 1.5 Weight last 48 hrs Weight 127.006 kg Physical Exam 2 Narrative: Mrs. Main Supine Morbidly obese No active discomfort No active chest pain or shortness of breath Grade 2 diastolic murmur Currently on room air Hemodynamically stable On Cardizem drip is at the bedside S1, S2 A-fib RVR Abdomen soft Distended nontender Lower extremity no edema Nonfocal neuroexam Data 08/05/23 12:31 08/05/23 12:31 A&P Assessment and plan (1) Hypertension: (2) Atrial fibrillation, new onset: (3) Atrial fibrillation with rapid ventricular response: (4) Alcohol consumption one to two days per week: Plan New onset A-fib [id number] score is 2 for hypertension and sex Will put her on high-dose aspirin DVT prophylaxis Lovenox Target is to convert her back to normal rhythm if she does not convert in next 24 hours then cardioversion might be needed along cardiac consultation For now she is on Cardizem drip I will add p.o. 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 Main who is her stating that they will like to follow-up with the PCP to get an appointment for electrophysiology at [facility] Cardiac diet History of hypertension: Currently well-controlled patient takes losartan 50 mg, monitor blood pressure for now Concern for metabolic syndrome obesity, hypertension, check A1c level, lipid panel, Review of records from PCP reveal history of hypertension and her dose of losartan has been increased from 25 mg to 50 mg which I would continue at this point History of migraine: No active complaints Full code Cardiac diet DVT prophylaxis added. All questions were answered to their satisfaction, Attestations 2 Medical Necessity Statement*: Anticipating discharge within 48 hours for management of new onset A-fib Diagnoses Hypertension I10 Atrial fibrillation, new onset I48.91 Atrial fibrillation with rapid ventricular response I48.91 Alcohol consumption one to two days per week Z78.9
[2023-08-05 14:27] LABS: Magnesium 2.3 mg/dL (1.7-2.3)
[2023-08-05 14:29] LABS: D Dimer 0.59 ug/mLFEU (0-0.59)
--- NOTE | 2023-08-05 14:33 | PC.PHAR ---
pt and pts verified pts medications-pts asked if he needed to bring the pts bc spoke with al rosen [facility] states she will tell the that he needs to bring the pts bc
[2023-08-05 14:52] LABS: Troponin 5 2HR Delta 0.00001 ABS# (0-10)
[2023-08-05 14:53] LABS: Chol HDL Ratio 4.85 mg/dL (0.0-4.40); Cholesterol 233 mg/dL (0-200); HDL Cholesterol 48 mg/dL (60-100); LDL Cholesterol Calculated 141 mg/dL (50-129); LDL HDL Ratio 2.94 RATIO (0.00-3.22); Triglycerides 222 mg/dL (0-150)
[2023-08-05 14:55] LABS: Alcohol Level < 10 mg/dL (0-10)
--- NOTE | 2023-08-05 15:20 | PC.NURSE ---
Received into room 108 from er at 1430.pt is alert and awake and oriented x 4.denies pain at present.afib on monitor.cardizem drip on at 7.5 mg/hr.rate 90-110's.oriented to room environment.instructed to notify staff for any sob,chest pain,or for any concerns at all.pt verb understanding of instructions
[2023-08-05] MEDS: dilTIAZem 30 mg Tablet PO ×2 (15:45→20:13)
[2023-08-05] MEDS: enoxaparin 40 mg/0.4 mL Syringe SUBCUT (15:45)
--- NOTE | 2023-08-05 15:50 | PC.NURSE ---
episodes of rapid afib and flutter.up to 150's,then decreases to 100-110.cardizem po given at this time.cardizem drip increased to 10 mg/hr
[2023-08-05 16:05] LABS: Estmated Average Glucose 91; Hemoglobin A1C 4.8 % (4.0-6.0)
[2023-08-05] MEDS: acetaminophen 500 mg Tablet PO (17:16)
--- NOTE | 2023-08-05 18:34 | PC.NURSE ---
1821...converted to nsr.dr landeros notified.he ordered to turn off faisal garner.
--- NOTE | 2023-08-05 18:47 | PC.NURSE ---
pt became hot and nauseated...then vomited large amt of undigested food.heart rate dropped into 50's...quickly recovered to 80's nsr
--- NOTE | 2023-08-05 19:10 | PC.NURSE ---
Patient reports no nausea at this time. States, I feel much better. Patient visiting with family. No distress observed. Remains in NSR since conversion at 1822. Will continue to monitor.
[2023-08-05 19:22] LABS: Troponin 5 6HR Delta 0.00001 ng/L (0-12)
[2023-08-06] VITALS: BP 121/67; PULSE 96; RESP 21; TEMP 36.5; O2SAT 93
[2023-08-06 00:28] VITALS: PULSE 76; RESP 16; O2SAT 94
[2023-08-06] MEDS: dilTIAZem 30 mg Tablet PO ×2 (02:17→08:23)
--- NOTE | 2023-08-06 04:52 | PC.NURSE ---
Patient refusing to have vs and labs drawn before 0700.
[2023-08-06 05:53] VITALS: PULSE 63
--- NOTE | 2023-08-06 06:00 | USCV_ITS ---
Ness Hernández Age: 37 Gender: F : 1985 Exam Date: 08/06/2023 07:06 Ordering Phys: Ricci Cedillo MD Technologist: Colten Talavera Exam Location: [facility] – [place] Indication: new afib BP: 121 / 67 HR: Rhythm: Sinus Technical Quality: Adequate MEASUREMENTS (Male / Female) Normal Values 2D ECHO LVOT Diameter 2.1 cm LV Ejection Fraction MOD 2C 70.1 % LV Ejection Fraction 2C AL 0.0 % LA Diameter 3.1 cm Aorta at Sinotubular Diameter 2.6 cm IVC Diameter 2.0 cm M-MODE LA Ao Ratio MM 1.2 AV Cusp Separation MM 2.1 cm DOPPLER AV Peak Velocity 133.0 cm/s LVOT Peak Velocity 99.0 cm/s AV Area Cont Eq vti 2.7 cm squared AV Area Cont Eq pk 2.6 cm squared MV Peak Velocity 112.0 cm/s MV Area PHT 4.7 cm squared Mitral E to A Ratio 1.9 TV Peak Velocity 117.7 cm/s TR Peak Velocity 127.0 cm/s TR Peak Gradient 6.5 mmHg TR Mean Velocity 89.0 cm/s TR Mean Gradient 3.4 mmHg TR Velocity Time Integral 29.8 cm PV Peak Velocity 114.0 cm/s RV Ejection Time 0.3 s FINDINGS Left Ventricle Normal left ventricular size and systolic function, EF 70%. No regional wall motion abnormalities. Right Ventricle The right ventricle is normal in size and function. Right Atrium The right atrium is normal in size. Left Atrium The left atrium is normal in size. Mitral Valve No gross abnormalities noted Aortic Valve No gross abnormalities noted Tricuspid Valve No gross abnormalities noted Pulmonic Valve Trace pulmonary valve regurgitation. Pericardium Normal pericardium without effusion. Aorta Normal ascending aorta dimension. IVC The inferior vena cava appears normal. CONCLUSIONS Normal left ventricular size and systolic function, EF 70%. No regional wall motion abnormalities. Trace pulmonary valve regurgitation. Normal cardiac chamber sizes. No significant valvular abnormalities No intracardiac masses. No pericardial effusion. No similar previous studies are available for comparison Dr Melia Yen MD FAC (Electronically Signed) Final Date: 06 August 2023 08:57 S
[2023-08-06 07:58] LABS: Basophils # 0.1 10^3/uL (0.0-0.1); Basophils % 0.5 %; Eosinophils # 0.1 10^3/uL (0.0-0.8); Eosinophils % 0.9 %; Hematocrit 41.8 % (36-47); Lymphocytes # 2.2 10^3/uL (0.8-4.8); Lymphocytes % 23.3 %; Mean Corpuscular HGB Conc 32.5 g/dL (30-55); Mean Corpuscular Volume 92.3 fl (85-98); Mean Platelet Volume 9.6 fL (7.4-10.4); Monocytes # 0.6 10^3/uL (0.2-0.9); Monocytes % 6.2 %; Neutrophils # 6.53 10^3/uL (1.8-7.7); Neutrophils % 68.7 %; Nucleated Red Blood Cells % 0 %; Platelet Count 358 10^3/cmm (157-399); Red Blood Count 4.53 10^6/uL (3.85-5.65); Red Cell Distribution Width 13.7 % (12.1-15.1); White Blood Count 9.52 10^3/uL (3.29-11.43)
[2023-08-06 08:00] VITALS: BP 124/75; PULSE 83; RESP 17; O2SAT 97
[2023-08-06 08:17] LABS: Anion Gap 15.5 (5-19); Blood Urea Nitrogen 10 mg/dL (6-20); Calcium 8.5 mg/dL (8.5-10.5); Carbon Dioxide 23 mmol/L (22-29); Chloride 104 mmol/L (98-107); Creatinine Clr Calc Pharmacy 186.0973; Glomerular Filtration Rate 112.5 mL/min (90-130); Glucose 100 mg/dL (65-115); Magnesium 2.6 mg/dL (1.7-2.3); Osmolality Calculated 287 mOsm/kg (285-295); Phosphorus 3.6 mg/dL (2.5-4.5); Potassium 3.5 mmol/L (3.5-5.1); Sodium 139 mmol/L (136-145)
[2023-08-06 08:21] VITALS: BP 124/75
[2023-08-06] MEDS: acetaminophen 500 mg Tablet PO (08:21)
[2023-08-06] MEDS: losartan 50 mg Tablet PO (08:21)
[2023-08-06] MEDS: aspirin 325 mg EC Tablet PO (08:21)
[2023-08-06 11:29] VITALS: BP 139/87; PULSE 68; RESP 14; TEMP 36.9; O2SAT 95
--- NOTE | 2023-08-06 12:24 | PM.DCS ---
Discharge Providers Date of Admission: 08/05/23 13:54 Date of Discharge: August 06, 2023 Attending Provider at Admission: Ricci Cedillo MD Attending Provider at Discharge: Zaire Santoyo MD Primary Care Provider: Zaire Gallagher MD Diagnoses at Discharge Discharge Diagnosis (1) Hypertension: Status: Acute (2) Atrial fibrillation, new onset: Status: Acute (3) Atrial fibrillation with rapid ventricular response: Status: Acute (4) Alcohol consumption one to two days per week: Status: Acute Reason for Visit Reason for Visit: Chest Pains Hospital Course Hospital Course Ness Hernández is a 37-year-old female with past medical history significant for hypertension who presented with palpitations, found to have atrial fibrillation with rapid ventricular rate. She was treated with IV diltiazem, and rotated to oral diltiazem. She converted back to sinus rhythm. Her [id number]-[id number] score was 2. We discussed antiplatelet and anticoagulation options. Proceeded with high-dose aspirin treatment. Echocardiogram revealed no acute findings. Patient's symptomatology improved and she was discharged home. She does plan to follow-up with PCP and will request for referral to EP through their office. Physical Exam Narrative: General: Patient is awake and alert. Very pleasant. Head: Normocephalic. Atraumatic. EOM intact. Neck: No JVD. Cardiovascular: RRR. No gallops. No murmurs. Lungs: Clear to auscultation, no use of accessory muscles, no crackles or wheezes. Skin: No jaundice. No rashes. Abdomen: Normal bowel sounds, abdomen soft and nontender. Extremities: No cyanosis or clubbing. Musculoskeletal: No swollen or erythematous joints. Neurological: Moves all 4 extremities. No myoclonus. Discharge Data Studies Completed and Pending Completed Studies During Hospitalization Category Date Time Status XR chest 1V portable [id number] Urgent Exams 08/05/23 12:09 Completed CV. echo complete* [id number] Routine Ultrasound 08/06/23 06:00 Completed Laboratory Results WBC 9.52 10^3/uL (3.29-11.43) 08/06/23 07:45 RBC 4.53 10^6/uL (3.85-5.65) 08/06/23 07:45 Hgb 13.60 g/dL (11.27-16.99) 08/06/23 07:45 Hct 41.8 % (36-47) 08/06/23 07:45 MCV 92.3 fl (85-98) D 08/06/23 07:45 MCH 30.0 pg (27-33) 08/06/23 07:45 MCHC 32.5 g/dL (30-55) D 08/06/23 07:45 RDW 13.7 % (12.1-15.1) 08/06/23 07:45 Plt Count 358 10^3/cmm (157-399) 08/06/23 07:45 MPV 9.6 fL (7.4-10.4) 08/06/23 07:45 Neut % (Auto) 68.7 % 08/06/23 07:45 Lymph % (Auto) 23.3 % 08/06/23 07:45 [place] % (Auto) 6.2 % 08/06/23 07:45 Eos % (Auto) 0.9 % 08/06/23 07:45 Baso % (Auto) 0.5 % 08/06/23 07:45 Neut # (Auto) 6.53 10^3/uL (1.8-7.7) 08/06/23 07:45 Lymph # (Auto) 2.2 10^3/uL (0.8-4.8) 08/06/23 07:45 [place] # (Auto) 0.6 10^3/uL (0.2-0.9) 08/06/23 07:45 Eos # (Auto) 0.1 10^3/uL (0.0-0.8) 08/06/23 07:45 Baso # (Auto) 0.1 10^3/uL (0.0-0.1) 08/06/23 07:45 Nucleated RBC % (auto) 0 % 08/06/23 07:45 Nucleated RBCs # 0.0 /100WBC 08/06/23 07:45 D-Dimer 0.59 ug/mLFEU (0-0.59) 08/05/23 12:31 Sodium 139 mmol/L (136-145) 08/06/23 07:45 Potassium 3.5 mmol/L (3.5-5.1) 08/06/23 07:45 Chloride 104 mmol/L (98-107) 08/06/23 07:45 Carbon Dioxide 23 mmol/L (22-29) 08/06/23 07:45 Anion Gap 15.5 (5-19) 08/06/23 07:45 BUN 10 mg/dL (6-20) 08/06/23 07:45 Creatinine 0.6 mg/dL (0.5-0.9) 08/06/23 07:45 GFR Calculation 112.5 mL/min (90-130) 08/06/23 07:45 Glucose 100 mg/dL (65-115) 08/06/23 07:45 Estimat Average Glucose 91 08/05/23 12:31 Hemoglobin A1c 4.8 % (4.0-6.0) 08/05/23 12:31 Calculated Osmolality 287 mOsm/kg (285-295) 08/06/23 07:45 Calcium 8.5 mg/dL (8.5-10.5) 08/06/23 07:45 Phosphorus 3.6 mg/dL (2.5-4.5) 08/06/23 07:45 Magnesium 2.6 mg/dL (1.7-2.3) H 08/06/23 07:45 Total Bilirubin 0.2 mg/dL (0.15-1.2) 08/05/23 12:31 AST 13 U/L (0-32) 08/05/23 12:31 ALT 13 U/L (0-33) 08/05/23 12:31 Alkaline Phosphatase 76 U/L (35-105) 08/05/23 12:31 Troponin T Baseline < 6 ng/L (0-10) 08/05/23 12:31 Troponin T 120 Minute 6.00 ng/L (0-10) 08/05/23 14:19 Delta Troponin T 0.46707 ABS# (0-10) 08/05/23 14:19 Troponin T Hi Sens 6Hr 6.00 ng/L (0-10) 08/05/23 18:40 Troponin T Hi Sens 6Hr Delta 0.60211 ng/L (0-12) 08/05/23 18:40 NT-Pro-B Natriuret Pep 599 pg/mL (0-125) H 08/05/23 12:31 Total Protein 7.1 g/dL (6.6-8.7) 08/05/23 12:31 Albumin 3.8 g/dL (3.5-5.2) 08/05/23 12:31 Globulin 3.3 g/dL (1.3-4.6) 08/05/23 12:31 Triglycerides 222 mg/dL (0-150) H 08/05/23 12:31 Cholesterol 233 mg/dL (0-200) H 08/05/23 12:31 LDL Cholesterol, Calc 141 mg/dL (50-129) H 08/05/23 12:31 HDL Cholesterol 48 mg/dL (60-100) L 08/05/23 12:31 LDL/HDL Ratio 2.94 RATIO (0.00-3.22) 08/05/23 12:31 Cholesterol/HDL Ratio 4.85 mg/dL (0.0-4.40) H 08/05/23 12:31 TSH 2.90 uIU/mL (0.27-4.20) 08/05/23 12:31 HCG, Qual Negative (Negative) 08/05/23 12:31 Ethyl Alcohol < 10 mg/dL (0-10) 08/05/23 12:31 Vitals Last Vital Signs Temp 98.5 F 08/06/23 11:29 Pulse 68 08/06/23 11:29 Resp 14 08/06/23 11:29 BP 139/87 08/06/23 11:29 Pulse Ox 95 08/06/23 11:29 O2 Del Method Room Air 08/06/23 11:29 Discharge Plan Discharge Patient Disposition: Home Condition: Stable Prescriptions: New aspirin 325 mg Tablet,Delayed Release (Dr/Ec) 325 mg PO DAILY Qty: 30 11RF Cardizem CD 120 mg capsule,extended release 24hr 120 mg PO DAILY 30 Days Qty: 30 1RF Continued cetirizine [Zyrtec] 10 mg tablet 10 mg PO QAM Women's Multivitamin 18 mg-400 mcg- 500 mg-50 mcg tablet 1 tab PO QAM fluticasone propionate 50 mcg/actuation spray,suspension 2 spray intranasal QAM Rx Instructions: administer into each nostril cholecalciferol (vitamin D3) 25 mcg (1,000 unit) capsule 25 mcg PO QAM cyanocobalamin (vitamin B-12) [Vitamin B-12] 500 mcg tablet 500 mcg PO QAM valacyclovir 1 gram tablet See Rx Instructions .ROUTE .COMPLEX Qty: 30 6RF Dose Instruction: TAKE 2 TABLETS BY MOUTH TWICE DAILY FOR 1 DAY WITH OUTBREAKS AND 1 TABLET FOR SUPPRESSION Rx Instructions: TAKE 2 TABLETS BY MOUTH TWICE DAILY FOR 1 DAY WITH OUTBREAKS AND 1 TABLET daily FOR SUPPRESSION sumatriptan succinate 50 mg tablet 50 mg PO Q2H PRN (Reason: migraine headache) Qty: 14 3RF Rx Instructions: Do not exceed two tabs in 24 hrs. norethindrone ac-eth estradiol 1-20 mg-mcg tablet 1 tab PO QAM losartan 50 mg tablet 50 mg PO QAM Vitamin C 500 mg Tablet 500 mg PO QAM Fiber Gummies 2 gram Tablet,Chewable 2 g PO QAM Discharge Orders: Discharge Order (Routine); Ordered 08/06/23 Ordered By: Zaire Santoyo Referrals: Zaire Gallagher MD [Primary Care Provider] - 1-3 days (Your primary doctor clinic should be calling you for a date and time of your follow-up with Dr. Gallagher in 1-3 days. If you have not heard from them by Tuesday, please give them a call.) Discharge Diet: Advance as tolerated and Usual diet Discharge Activity: Increase activity as tolerated Patient Instructions: Diltiazem (By mouth), Aspirin (By mouth), A-fib (Atrial Fibrillation) (DC), Opioid Safety Activity Restrictions/Additional Instructions: 1. Take medications as prescribed 2. Follow-up with PCP 3. Reduce alcohol intake 4. Discuss sleep apnea risk with PCP Discharge Attestations Time Spent in Discharge Care*: greater than 30 min Quality Metrics Clinical Quality Measures [ No reported AMI, CVA or VTE this stay] Coding Level of Care Code Acute Code for Chg Fwd Diagnoses Hypertension I10 Atrial fibrillation, new onset I48.91 Atrial fibrillation with rapid ventricular response I48.91 Alcohol consumption one to two days per week Z78.9
--- NOTE | 2023-08-06 13:06 | PC.NURSE ---
called new Rx to [facility] pharmacy and they have it ready in an hour. notified pt and at bedside.
== END 2023-08-06 13:45 | disposition home or self-care (01) ==
LOC: ER 13:54 → CSU 14:34
PROVIDERS: Admitting Provider Internal Medicine; Emergency Provider Physician Assistant; PCP Family Medicine; Visit Provider Internal Medicine
DX: I48.91 Unspecified atrial fibrillation (principal); I10 Essential (primary) hypertension; E78.5 Hyperlipidemia, unspecified; E66.01 Morbid (severe) obesity due to excess calories; Z68.41 Body mass index [BMI] 40.0-44.9, adult; F10.90 Alcohol use, unspecified, uncomplicated; Y90.0 Blood alcohol level of less than 20 mg/100 ml
CPT/HCPCS: 36415; 71045; 80048; 80053; 80061; 80307; 83036; 83735; 83880; 84100; 84443; 84484; 84703; 85025; 85378; 93005; 93306; 96365; 96372; 96375; 99285; G0378; J1650; J3490

== ENCOUNTER → 2023-08-10 13:49 | Outpatient (BNVA) | payer BC, SELFPAY | PROVIDERS: PCP Family Medicine; Visit Provider Family Medicine | DX: I48.91 Unspecified atrial fibrillation; R09.81 Nasal congestion | CPT/HCPCS: 87635 ==

== ENCOUNTER 2023-09-06 20:00 | Outpatient (CLI) | payer BC, SELFPAY | END 2023-09-06 20:01 | disposition home or self-care (01) | LOC: SLEEP 09-07 05:25 | PROVIDERS: PCP Family Medicine; Visit Provider Family Medicine | DX: G47.10 Hypersomnia, unspecified (principal); I48.91 Unspecified atrial fibrillation | CPT/HCPCS: 95810 ==

== ENCOUNTER → 2024-04-04 09:45 | Outpatient (BNVA) | payer BC, SELFPAY | PROVIDERS: PCP Family Medicine; Visit Provider Family Medicine | DX: Z51.81 Encounter for therapeutic drug level monitoring (principal); Z13.220 Encounter for screening for lipoid disorders; E03.9 Hypothyroidism, unspecified; R53.81 Other malaise; R53.83 Other fatigue | CPT/HCPCS: 80053; 80061; 83550; 84439; 84443; 85025 ==

== ENCOUNTER → 2025-05-31 10:46 | Outpatient (BNVA) | payer BC, SELFPAY | PROVIDERS: PCP Family Medicine; Visit Provider Family Medicine | DX: E53.8 Deficiency of other specified B group vitamins (principal); N92.0 Excessive and frequent menstruation with regular cycle; R23.3 Spontaneous ecchymoses; Z00.00 Encounter for general adult medical examination without abnormal findings; D64.9 Anemia, unspecified; Z13.6 Encounter for screening for cardiovascular disorders; Z51.81 Encounter for therapeutic drug level monitoring; E55.9 Vitamin D deficiency, unspecified | CPT/HCPCS: 80053; 80061; 82306; 82607; 83550; 84439; 84443; 85025; 85610; 85651; 86038 ==